=== PATIENT | male | born 1960 | race Caucasian/White ===

== ENCOUNTER 2023-07-20 12:30 | Day surgery (SDC) | payer OTHER ==
[~2023-07-20] VITALS: Ht 195.6 cm; Wt 116.8 kg
[~2023-07-20 12:30] MED LIST: ADULT LOW DOSE81 MG PO; COZAAR100 MG PO; CYCLOBENZAPRINE10 MG PO; GLUCOSAMINE1000 MG PO; IBLOOD GLUCOSE TEST STRIP 1 EA TEST VI PRN; LACTATED RINGER'S 1,000 ML IV SCH; LIDOCAINE HCL 1% 5 ML SDV INJ ONE; MAGNESIUM200 MG PO; MIDAZOLAM HCL 5 MG/5 ML VIAL IV PRN; MULTIPLE VITAM1 EAC2 PO; OMEPRAZOLE20 MG PO; VITAMIN C120 GM PO; ZINC30 MG PO; fentaNYL citrate 100 MCG/2 ML VIAL IV PRN
[2023-07-20 12:47] VITALS: BP 115/85
[2023-07-20] MEDS ORDERED: TURMERIC500 M3 PO (12:52)
[2023-07-20] MEDS ORDERED: MIDAZOLAM HCL 5 MG/5 ML VIAL ONE (14:53)
[2023-07-20] MEDS ORDERED: fentaNYL citrate 100 MCG/2 ML VIAL ONE (14:54)
[2023-07-20 16:14] VITALS: BP 144/88
--- NOTE | 2023-07-20 17:36 | NUR ---
07/20/23 1736 Vivian,Hannah 1543 PT ARRIVED TO PACU ON 3L VIA NC, PT WAKES EASILY ON HIS OWN AND DENIES CONCERNS, PT REORIENTED TO PACU AND IS ENCOURAGED TO PASS GAS NEEDED. PT ROLLED TO HIS BACK. 1548 HOB INCREASED AND PT TALKING TO MD. PT EASILY FALLS BACK TO SLEEP 1556 O2 TURNED OFF. 1610 PT SIPPING JUICE PER REQUEST. PT TALKING TO RN OFF AND ON. 1623 PT DRESSED HIMSELF AND DC INSTRUCTIONS GIVEN, PT REPORTS "I WOULD LIKE SOME WHISKEY." EDUCATION GIVEN ON NOT DRINKING FOR THE NEXT 24 HOURS AND PT VERBALIZED UNDERSTANDING. PT DC WITH PAPERWORK AND VERBALIZED UNDERSTANDING OF PT NOT DRINKING FOR 24 HOURS. PAPERWORK GIVEN AND PT DC VIA WC TO WITH ALL BELONGINGS.
--- NOTE | 2023-07-22 12:12 | OR ---
[facility] [address], [place] [address] Signed DATE OF OPERATION: 07/20/2023 SURGEON: Joseph Ortega MD PREOPERATIVE DIAGNOSES: 1. Colon screening. 2. History of polyp 2013. POSTOPERATIVE DIAGNOSES: 1. Sigmoid and left-sided diverticulosis. 2. Small polyp left colon. PROCEDURE: Total colonoscopy to cecum with cold morcellation polypectomy x1. ANESTHESIA: Intravenous sedation; fentanyl 150 mcg, Versed 7 mg. INDICATION: This 63-year-old white man is a patient of at [facility]. He underwent colonoscopy by me in 2013 at which time he was found to have a tubular adenoma and subsequent colonoscopy in 2017 showing no sign of polyp but diverticula were noted. He currently has no symptoms of bleeding, diarrhea, constipation and no family history of colon cancer. He understands the risk of bleeding, infection, and perforation related to colonoscopy and wished to proceed. FINDINGS: The prep was good. Complete colonoscopy was undertaken of the cecum. He had diverticula of the sigmoid and left colon. There was a small polyp of the left colon which was excised with cold morcellation technique. The remaining colon was normal. DESCRIPTION OF PROCEDURE: The patient was brought to the endoscopy suite and placed in the lateral decubitus position, given intravenous sedation to the point of slurred speech and nystagmus. Digital rectal examination was normal. An Olympus video colonoscope was passed in the rectum and manipulated throughout the colon ultimately intubating the cecum itself. Assistance of abdominal wall stabilization was required for passage beyond the mid transverse colon. Upon obtaining visualization of the cecum, irrigation was undertaken. The scope was carefully Electronically Signed By: JOSEPH ORTEGA MD 07/22/23 1212 PATIENT NAME: CLAUDIA RUCKER OPERATIVE REPORT DATE OF : 60 REPORT #: [id number] PHYSICIAN: JOSEPH ORTEGA MD PCP: ADRIANNA ALFORD MD REPORT IS CONFIDENTIAL AND NOT TO BE RELEASED WITHOUT AUTHORIZATION [facility] [address], [place] [address] Signed withdrawn showing no sign of abnormality other than diverticula of the left colon until the mid to upper left colon where a small adenomatous appearing polyp was noted. This was excised with cold morcellation technique. Further withdrawal showed no sign of abnormality other than diverticula. Retroflexed view of the rectum was normal. Scope was removed and the patient was taken to recovery room in good condition. CONCLUDING DIAGNOSES: 1. Diverticulosis. 2. Polyp x1, left colon. PLAN: Would recommend repeat colonoscopy in 3 to 5 years, sooner if clinically indicated. He will return to the ongoing care of MD MADY Benjamin/ELLIOT /[id number] cc: Copies: ~ Electronically Signed By: JOSEPH ORTEGA MD 07/22/23 1212 PATIENT NAME: CLAUDIA RUCKER OPERATIVE REPORT DATE OF : 60 REPORT #: [id number] PHYSICIAN: JOSEPH ORTEGA MD PCP: ADRIANNA ALFORD MD REPORT IS CONFIDENTIAL AND NOT TO BE RELEASED WITHOUT AUTHORIZATION
--- NOTE | 2023-07-25 11:20 | PATH ---
[facility] [address] [place], [place] [address] Signed SPECIMEN(S): A DESCENDING/LEFT COLON POLYP SPECIMEN SOURCE: A. DESCENDING/LEFT COLON POLYP CLINICAL HISTORY: History of tubular adenoma 2013. Diverticula/polyp FINAL PATHOLOGIC DIAGNOSIS: Descending/left colon polyp: - Tubular adenoma, negative for high-grade dysplasia. NA MICROSCOPIC EXAMINATION: Histologic sections of all submitted blocks are examined by light microscopy. These findings, together with the gross examination, support the pathologic diagnosis. GROSS DESCRIPTION: The specimen, labeled and designated "Siegel, descending/left colon polyp," is received in formalin and consists of three salas soft tissue fragments, ranging from 0.2-0.4 cm. Entirely submitted in (A1). VB (under the direct supervision of a pathologist) The Gross Description was prepared using a voice recognition system. The report was reviewed for accuracy; however, sound-alike word errors, addition and/or deletions may occur. If there is any question about this report, please contact Client Services. ADDITIONAL NOTES: Immunohistochemical and/or in situ hybridization studies if performed in this case included appropriate positive controls that reacted as expected. This test was developed and its performance characteristics determined by [facility]. It has not been cleared or approved by the U.S. Food and Drug Administration. The FDA has determined that such clearance or approval is not necessary. This test is used for clinical purposes. It should not be regarded as investigational or for research. [facility] is certified under the Clinical Laboratory Improvement Amendments of 1988 (CLIA) as qualified to perform high complexity clinical laboratory testing. PATIENT NAME: CLAUDIA SIEGEL PATHOLOGY DATE OF : 60 REPORT #: [id number] PHYSICIAN: DIEGO ERICKSON PCP: ADRIANNA ALFORD MD REPORT IS CONFIDENTIAL AND NOT TO BE RELEASED WITHOUT AUTHORIZATION [facility] [address] [facility] [place] [place] [address] Signed PERFORMING LABORATORY: Technical component was performed [place] [address] (CLIA# [id number]). Professional interpretation was performed by [facility] - [facility], [address] [place] [address] (CLIA#: [id number]). Diagnostician: Thaddeus Juares MD Pathologist Electronically Signed 07/25/2023 Copies: ~ PATIENT NAME: CLAUDIA SIEGEL PATHOLOGY DATE OF : 60 REPORT #: [id number] PHYSICIAN: DIEGO ERICKSON PCP: ADRIANNA ALFORD MD REPORT IS CONFIDENTIAL AND NOT TO BE RELEASED WITHOUT AUTHORIZATION
== END 2023-07-20 16:23 | disposition home or self-care (01) ==
LOC: DS 12:30 → OPS 12:30 → DS 14:00 → OPS 14:00
PROVIDERS: ATTEND Surgery
PROC: 0DBE8ZX Excision of Large Intestine, Via Natural or Artificial Opening Endoscopic, Diagnostic (ICD-10-PCS; principal; 2023-07-20 14:00)
DX: Z12.11 Encounter for screening for malignant neoplasm of colon (principal); D12.4 Benign neoplasm of descending colon; K57.30 Diverticulosis of large intestine without perforation or abscess without bleeding; Z86.010 Personal history of colon polyps; K59.00 Constipation, unspecified; K21.9 Gastro-esophageal reflux disease without esophagitis; I10 Essential (primary) hypertension; E66.01 Morbid (severe) obesity due to excess calories; Z68.30 Body mass index [BMI] 30.0-30.9, adult; Z79.82 Long term (current) use of aspirin; Z79.899 Other long term (current) drug therapy
CPT/HCPCS: 99153; G0500; J2250; J3010